=== PATIENT | male | born 1955 | race Caucasian/White ===

== ENCOUNTER 2017-04-22 15:24 | Emergency (ER) | payer BC ==
[~2017-04-22] VITALS: Ht 188 cm; Wt 118.2 kg
[~2017-04-22 15:24] MED LIST: Aspirin PO; COENZYME Q-10 PO; ENDOCET 5-3251 EACH PO; FISH OIL SOFTG1 EACH PO; Levaquin PO; MAGNESIUM GLUC200 MG PO; MULTIVITAMIN1 EAC2 PO; Percocet 5/325,Endoc PO; TURMERIC500 MG PO; [UNRECOGNIZED DRUG - OTHER] PO
[2017-04-22 16:27] LABS: HEMATOCRIT 45.5 % (38.0-50.0); MCH 30.5 PG (29.0-34.0); MCHC 33.6 G/DL (30.0-36.0); MCV 90.8 FL (86-99); MEAN PLAT.VOLUME 9.6 uM^3 (9.0-12.4); PLATELET COUNT 291 K/uL (156-360); RBC DIS.WIDTH-CV 13.1 % (11.8-14.6); RBC DIS.WIDTH-SD 43.5 % (39-53); RED BLOOD COUNT 5.01 M/uL (4.00-5.50); WHITE BLOOD COUNT 13.2 K/uL (4.1-10.2)
[2017-04-22 16:34] LABS: CHLORIDE 107 mEq/L (99-109); POTASSIUM 3.8 mEq/L (3.7-5.4); SODIUM 141 mEq/L (136-147)
[2017-04-22 16:36] LABS: GLUCOSE 99 mg/dL (70-99)
[2017-04-22 16:37] LABS: ANION GAP 11 MEQ/L (2-14)
[2017-04-22 16:38] LABS: TOTAL BILIRUBIN 0.5 mg/dL (0.0-1.0)
[2017-04-22 16:40] LABS: ALKALINE PHOSPHATASE 70 IU/L (3-129); GFR ESTIMATE (CALCULATED) > 59 mL/min/
[2017-04-22 16:41] LABS: UREA NITROGEN (BUN) 14 mg/dL (9-23)
[2017-04-22 16:46] LABS: TROP-I INTERPRETATION NEGATIVE; TROPONIN-I < 0.01 ng/mL (0.0-0.30)
[2017-04-22 18:54] VITALS: BP 130/86
== END 2017-04-22 18:55 | disposition home or self-care (01) ==
LOC: EME 15:24
PROVIDERS: Emergency Medicine
DX: R55 Syncope and collapse (principal); M41.9 Scoliosis, unspecified; F10.10 Alcohol abuse, uncomplicated; F19.10 Other psychoactive substance abuse, uncomplicated; F17.200 Nicotine dependence, unspecified, uncomplicated
CPT/HCPCS: 70450; 71020; 80053; 84484; 85027; 93005; 99281; 99284; J7030